=== PATIENT | male | born 1950 | race Caucasian/White ===

== ENCOUNTER 2025-02-20 12:52 | Emergency (ER) | payer OTHER ==
[2025-02-20] MEDS ORDERED: Droperidol 5 MG/2 ML VIAL ONE (13:19)
[2025-02-20] MEDS ORDERED: Furosemide 40 MG (4 mL) VIAL ONE (13:19)
[2025-02-20 13:20] LABS: #Basophils 0.03 10x3/uL (0.0-0.2); #Eosinophils 0.30 10x3/uL (0.0-0.5); #Monocytes 0.71 10x3/uL (0.0-1.1); #Neutrophils 3.97 10x3/uL (1.5-8.4); %Basophils 0.5 % (0.0-2.0); %Eosinophils 5.2 % (0.0-6.0); %Lymphocytes 12.4 % (18.0-47.0); %Monocytes 12.4 % (0.0-10.0); %Neutrophils 69.2 % (40.0-75.0); Hematocrit 26.7 % (38.8-50.0); Hemoglobin 8.3 g/dL (13.5-17.5); Mean Corpuscular Hemoglobin 26.7 pg (27.0-33.0); Mean Corpuscular Volume 85.9 fL (81.2-95.1); Platelet Count 156 10x3/uL (150-450); Red Blood Cell (RBC) Count 3.11 10x6/uL (4.32-5.72); White Blood Cell (WBC) Count 5.74 10x3/uL (3.5-10.5)
[2025-02-20] MEDS ORDERED: Aspirin Chewable 81 MG TAB ONE (13:20)
[2025-02-20 13:38] LABS: Troponin I 0.025 ng/mL (< 0.028)
[2025-02-20 13:39] LABS: ALT (SGPT) 19 U/L (Less than 45); AST (SGOT) 32 U/L (11-34); Albumin 3.4 g/dL (3.1-4.5); Alkaline Phosphatase 76 U/L (40-110); Anion Gap 13 mmol/L (10-20); BUN (Urea Nitrogen) 19 mg/dL (8.4-25.7); Bilirubin, Total 1.5 mg/dL (0.3-1.2); Calc. Creatinine Clearance 0 mL/min (70-130); Calcium 8.5 mg/dL (7.8-10.44); Carbon Dioxide 25 mmol/L (23-31); Chloride 107 mmol/L (98-107); Globulin 2.8 g/dL (2.4-3.5); Glucose 126 mg/dL (83-110); Potassium 3.8 mmol/L (3.5-5.1); Sodium 141 mmol/L (136-145)
[2025-02-20 15:44] LABS: Troponin I 0.020 ng/mL (< 0.028)
== END 2025-02-20 16:13 ==
LOC: CSHERS 12:52
DX: R07.9 Chest pain, unspecified (principal); I11.0 Hypertensive heart disease with heart failure; I50.9 Heart failure, unspecified; I48.91 Unspecified atrial fibrillation; J44.9 Chronic obstructive pulmonary disease, unspecified; I25.2 Old myocardial infarction; E78.5 Hyperlipidemia, unspecified; Z79.82 Long term (current) use of aspirin; Z79.899 Other long term (current) drug therapy
CPT/HCPCS: 36415; 71045; 80053; 83880; 84484; 85025; 93005; 96374; 96375; J1790; J1940